=== PATIENT | male | born 1960 | race Caucasian/White ===

== ENCOUNTER 2021-12-04 04:24 | Day surgery (SDC) | payer BC ==
[2021-12-01 14:49] VITALS: BMI 31.0
[2021-12-04] MEDS ORDERED: PROPOFOL 20 ML ONE (16:30)
[2021-12-04] MEDS ORDERED: FENTANYL CITRATE/PF 50 MCG/ML VIAL ONE (16:30)
[2021-12-04] MEDS ORDERED: MIDAZOLAM HCL 2 MG/2 ML SINGLE DOSE VIAL ONE (16:32)
[2021-12-04 17:49] VITALS: BP 110/60; PULSE 70; TEMP 98
== END 2021-12-04 17:50 | disposition home or self-care (01) ==
LOC: JASU-SURG 04:24
PROVIDERS: ATTEND Urology
PROC: 0TF4XZZ Fragmentation in Left Kidney Pelvis, External Approach (ICD-10-PCS; principal; 2021-12-04 15:30)
DX: N20.0 Calculus of kidney (principal)